=== PATIENT | male | born 1965 | race Caucasian/White ===

== ENCOUNTER 2016-10-28 20:31 | Emergency (ER) | payer MEDICAID ==
[~2016-10-28] VITALS: Ht 177.8 cm; Wt 81.8 kg
[~2016-10-28 20:31] MED LIST: BACTRIM DS 8001 TAB PO; CEPHALEXIN500 M1 PO; LORTAB PO; NO HOME MEDICATIONS; PERCOCET 5/321 UDTAB PO; ULTRAM50 MG PO
[2016-10-28 20:33] VITALS: BP 165/116; TEMP 97.6
[2016-10-28] MEDS ORDERED: NEURONTIN300 MG/CAP PO (20:39)
[2016-10-28 21:24] LABS: BASO # 0.1 (0.0-0.2); BASO % 1.1 % (0.0-2.0); EOS # 0.2 (0.0-0.7); EOS % 3.1 % (0-4.0); GRAN # 3.5 (1.4-6.5); GRAN % 46.9 % (42.2-75.2); HEMATOCRIT 47.2 % (42.0-52.0); HEMOGLOBIN 16.8 g/dl (13.5-18.0); LYMPH # 2.8 (1.2-3.4); LYMPH % 37.4 % (20.0-51.0); MEAN CELL VOLUME 100 fl (80.0-100.0); MEAN CORPUSCULAR HEMOGLOBIN 36 pg (27.0-31.0); MEAN CORPUSCULAR HGB CONC 36 g/dl (33.0-37.0); MONO # 0.9 (0.1-0.6); MONO % 11.4 % (1.7-9.3); PLATELET COUNT 138 K/mm3 (130-400); REDCELL DISTRIBUTION WIDTH-CV 11.8 % (11.5-14.5); WHITE BLOOD COUNT 7.5 K/mm3 (4.8-10.8)
[2016-10-28 21:33] LABS: INR 1.1 (0.8-3.0); PROTHROMBIN TIME 12.5 SECONDS (9.7-12.8)
[2016-10-28 21:39] LABS: ADJUSTED CALCIUM 8.4 mg/dL (8.4-10.2); ALANINE AMINOTRANSFERASE 48 U/L (21-72); ALBUMIN 4.5 gm/dL (3.5-5.0); ALKALINE PHOSPHATASE 53 U/L (50-136); ANION GAP 17 mmol/L (7-16); BILIRUBIN,TOTAL 0.9 mg/dL (0.0-1.0); BLOOD UREA NITROGEN 3 mg/dL (9-20); C-REACTIVE PROTEIN < 0.5 mg/dL (0.0-0.9); CALCIUM 8.8 mg/dL (8.4-10.2); CARBON DIOXIDE 22 mmol/L (22-30); CHLORIDE 103 mmol/L (98-107); CREATININE, serum 0.66 mg/dL (0.66-1.25); GLUCOSE 104 mg/dL (74-106); POTASSIUM 3.6 mmol/L (3.4-5.0); SODIUM 143 mmol/L (137-145); TOTAL PROTEIN 7.9 gm/dL (6.4-8.2)
[2016-10-28 22:18] VITALS: PULSE 102
== END 2016-10-28 22:18 | disposition home or self-care (01) ==
LOC: COL.ER 20:31
PROVIDERS: Emergency Medicine
DX: Z89.611 Acquired absence of right leg above knee (principal); M79.662 Pain in left lower leg; M79.672 Pain in left foot; F10.120 Alcohol abuse with intoxication, uncomplicated; Y90.8 Blood alcohol level of 240 mg/100 ml or more

== ENCOUNTER → 2020-09-15 | Outpatient (REF) ==
[~2020-09-15] MED LIST changes: +ABILIFY5 MG PO; +ALEVE 220MG220 MG PO; +FOLIC ACID 11 MG/TA1 PO; +LEXAPRO 10MG10 MG PO; +LEXAPRO20 MG PO; +MAG-OX 400400 MG/TAB PO; +MELATONIN5 M1 PO; +MEN'S ONE DAIL1 EACH PO; +MILK THISTLE150 MG; +MIRAPEX 1MG PO; +MOBIC15 MG PO; +NEURONTIN300 MG/CAP PO; +NICODERM C21 MG/PATC TD; +PRILOSEC10 MG PO; +PRINIVIL5 MG PO; +PROTONIX 40MG T40 MG PO; +RT ADVAIR HFA 2312 G IH; +RT SPIRIVA18 MCG PO; +THIAMINE 1100 MG/TAB PO; +TRENTAL 400MG400 MG PO; +VENTOLIN0.09 MG; +VENTOLIN0.09 MG IH; +VITAMINC500CH PO
== END ==
LOC: ZLAB.WCH 09:32
DX: Z01.89 Encounter for other specified special examinations (principal)

== ENCOUNTER 2021-01-24 20:29 | Inpatient (IN) | payer MEDICARE, MEDICAID ==
[~2021-01-24] VITALS: Ht 177.8 cm; Wt 102.8 kg
[~2021-01-24 20:29] MED LIST changes: -ABILIFY5 MG PO; -ALEVE 220MG220 MG PO; -FOLIC ACID 11 MG/TA1 PO; -LEXAPRO 10MG10 MG PO; -LEXAPRO20 MG PO; -MAG-OX 400400 MG/TAB PO; -MELATONIN5 M1 PO; -MEN'S ONE DAIL1 EACH PO; -MILK THISTLE150 MG; -MIRAPEX 1MG PO; -MOBIC15 MG PO; -NICODERM C21 MG/PATC TD; -PRILOSEC10 MG PO; -PRINIVIL5 MG PO; -PROTONIX 40MG T40 MG PO; -RT ADVAIR HFA 2312 G IH; -RT SPIRIVA18 MCG PO; -THIAMINE 1100 MG/TAB PO; -TRENTAL 400MG400 MG PO; -VENTOLIN0.09 MG; -VENTOLIN0.09 MG IH; -VITAMINC500CH PO
[2021-01-24 21:12] LABS: BASO # 0.1 (0.0-0.2); BASO % 0.8 % (0.0-2.0); EOS # 0.1 (0.0-0.7); EOS % 0.7 % (0-4.0); GRAN # 4.9 (1.4-6.5); GRAN % 57.5 % (42.2-75.2); HEMATOCRIT 39.5 % (42.0-52.0); LYMPH # 2.6 (1.2-3.4); LYMPH % 30.5 % (20.0-51.0); MEAN CELL VOLUME 90 fl (80.0-100.0); MEAN CORPUSCULAR HEMOGLOBIN 32 pg (27.0-31.0); MEAN CORPUSCULAR HGB CONC 35 g/dl (33.0-37.0); MEAN PLATELET VOLUME 9.9 fl (7.4-10.4); MONO # 0.9 (0.1-0.6); MONO % 10.3 % (1.7-9.3); PLATELET COUNT 125 K/mm3 (130-400); RED BLOOD COUNT 4.41 M/mm3 (4.20-5.60); REDCELL DISTRIBUTION WIDTH-CV 14.4 % (11.5-14.5)
[2021-01-24 21:16] LABS: INR 1.6 (0.8-3.0); PROTHROMBIN TIME 17.5 SECONDS (9.7-12.8)
[2021-01-24 21:19] LABS: ALBUMIN 4.1 gm/dL (3.5-5.0); CALCIUM 8.2 mg/dL (8.4-10.2); CREATININE, serum 0.77 (0.66-1.25); TOTAL PROTEIN 7.5 gm/dL (6.4-8.2)
[2021-01-24 23:25] LABS: MAGNESIUM 1.6 mg/dL (1.6-2.3)
[2021-01-25] VITALS (562 sets, daily range): BP systolic 113–172; BP diastolic 86–96; PULSE 111–139; TEMP 98.1–99.9; O2SAT 57–100
[2021-01-25 03:18] LABS: HEMATOCRIT 34.7 % (42.0-52.0)
[2021-01-25 04:14] LABS: COLLECTION METHOD CLEAN CATCH
[2021-01-25 04:19] LABS: PH 6 (5-8); SQUAMOUS EPITHELIAL None Seen /hpf; URINE APPEARANCE Clear; URINE BACTERIA None Seen /hpf; URINE BILIRUBIN Negative (NEGATIVE); URINE BLOOD Negative (NEGATIVE); URINE COLOR Yellow; URINE GLUCOSE Negative (NEGATIVE); URINE KETONE Trace (NEGATIVE); URINE LEUKOCYTE ESTERASE Negative (NEGATIVE); URINE NITRATE Negative (NEGATIVE); URINE PROTEIN(semi-quant) Negative (NEGATIVE); URINE RBC None Seen /hpf; URINE UROBILINOGEN Negative (NEGATIVE)
[2021-01-25 04:26] LABS: TRICYCLIC ANTIDEPRESS URINE NEGATIVE
[2021-01-25] MEDS ORDERED: ABILIFY5 MG PO ×3 (05:10→05:12)
[2021-01-25] MEDS ORDERED: LEXAPRO20 MG PO ×3 (05:13→06:29)
[2021-01-25] MEDS ORDERED: NEURONTIN300 MG/CAP PO (05:14)
[2021-01-25] MEDS ORDERED: PRINIVIL5 MG PO (05:15)
[2021-01-25 05:16] LABS: BASO # 0.1 (0.0-0.2); BASO % 0.9 % (0.0-2.0); EOS % 0.2 % (0-4.0); GRAN # 4.2 (1.4-6.5); GRAN % 63.2 % (42.2-75.2); HEMOGLOBIN 11.4 g/dl (13.5-18.0); LYMPH # 1.7 (1.2-3.4); LYMPH % 25.9 % (20.0-51.0); MEAN CELL VOLUME 90 fl (80.0-100.0); MEAN CORPUSCULAR HEMOGLOBIN 32 pg (27.0-31.0); MEAN CORPUSCULAR HGB CONC 35 g/dl (33.0-37.0); MEAN PLATELET VOLUME 9.9 fl (7.4-10.4); MONO # 0.6 (0.1-0.6); MONO % 9.2 % (1.7-9.3); PLATELET COUNT 93 K/mm3 (130-400); REDCELL DISTRIBUTION WIDTH-CV 14.6 % (11.5-14.5)
[2021-01-25] MEDS ORDERED: MELATONIN5 M1 PO (05:16)
[2021-01-25 05:17] LABS: HEMATOCRIT 32.5 % (42.0-52.0)
[2021-01-25] MEDS ORDERED: MOBIC15 MG PO (05:17)
[2021-01-25] MEDS ORDERED: MILK THISTLE150 MG (05:17)
[2021-01-25] MEDS ORDERED: MEN'S ONE DAIL1 EACH PO (05:18)
[2021-01-25] MEDS ORDERED: ALEVE 220MG220 MG PO (05:19)
[2021-01-25] MEDS ORDERED: TRENTAL 400MG400 MG PO (05:20)
[2021-01-25] MEDS ORDERED: PRILOSEC10 MG PO (05:20)
[2021-01-25] MEDS ORDERED: MIRAPEX 1MG PO ×2 (05:21→06:32)
[2021-01-25] MEDS ORDERED: RT SPIRIVA18 MCG PO (05:22)
[2021-01-25] MEDS ORDERED: VENTOLIN0.09 MG (05:22)
[2021-01-25] MEDS ORDERED: VITAMINC500CH PO (05:23)
[2021-01-25 05:24] LABS: CALCIUM 7.1 mg/dL (8.4-10.2); CREATININE, serum 0.7 (0.66-1.25); POTASSIUM 5.1 mmol/L (3.4-5.0)
[2021-01-25] MEDS ORDERED: LEXAPRO 10MG10 MG PO (06:30)
[2021-01-25] MEDS ORDERED: RT ADVAIR HFA 2312 G IH (06:31)
[2021-01-25] MEDS ORDERED: VENTOLIN0.09 MG IH (06:32)
--- NOTE | 2021-01-25 07:26 | NUR ---
ATTEMPTED TIMES 3 TO OBTAIN NEW IV SITE TO BE ABLE TO GIVE FFP'S UNABLE AT THIS TIME SHERITA SCHNEIDER APRN AWARE
--- NOTE | 2021-01-25 09:37 | NUR ---
Initial visit; Patient nodded when Health And Safety Director introduced herself. Patient began coughing while Health And Safety Director was letting him know of her availability to pray or listen. Health And Safety Director will follow up.
--- NOTE | 2021-01-25 15:17 | NUR ---
quality worker met with patient to discuss discharge planning. Patient states he resides with his and will return there upon discharge. Patient states his primary care provider is Dr Susie Edgar. Patient states he has been independent with his activities of daily living at home. Patient states he doesn't have any advance directives and is not interested in making documents at this time. Worker left message for patient's spouse, Elisabeth [phone].
[2021-01-25 17:21] LABS: HEMOGLOBIN 9.4 g/dl (13.5-18.0)
[2021-01-25 17:22] LABS: HEMATOCRIT 27.9 % (42.0-52.0)
--- NOTE | 2021-01-25 19:19 | NUR ---
Report given to ORIN Fernandez
[2021-01-25 22:53] LABS: HEMOGLOBIN 10.7 g/dl (13.5-18.0)
[2021-01-26] VITALS (606 sets, daily range): BP systolic 126–157; BP diastolic 79–111; PULSE 95–118; TEMP 97.3–98.6; O2SAT 38–100
[2021-01-26 06:02] LABS: MEAN CORPUSCULAR HGB CONC 33 g/dl (33.0-37.0); MEAN PLATELET VOLUME 9.8 fl (7.4-10.4); PLATELET COUNT 71 K/mm3 (130-400); RED BLOOD COUNT 3.08 M/mm3 (4.20-5.60); REDCELL DISTRIBUTION WIDTH-CV 15.2 % (11.5-14.5)
[2021-01-26 06:04] LABS: HEMATOCRIT 29.1 % (42.0-52.0); HEMOGLOBIN 9.6 g/dl (13.5-18.0); MEAN CELL VOLUME 95 fl (80.0-100.0); MEAN CORPUSCULAR HEMOGLOBIN 31 pg (27.0-31.0)
[2021-01-26 06:14] LABS: ALBUMIN 3.5 gm/dL (3.5-5.0); BILIRUBIN,TOTAL 1.1 mg/dL (0.0-1.0); CALCIUM 7.8 mg/dL (8.4-10.2); CREATININE, serum 0.78 (0.66-1.25); POTASSIUM 3.6 mmol/L (3.4-5.0); TOTAL PROTEIN 6.3 gm/dL (6.4-8.2)
[2021-01-26 06:18] LABS: INR 1.5 (0.8-3.0)
[2021-01-26 16:25] LABS: HEMATOCRIT 27.1 % (42.0-52.0)
[2021-01-26] MEDS ORDERED: RT ADVAIR HFA 2312 G IH (17:21)
--- NOTE | 2021-01-26 20:00 | NUR ---
PATIENT NOTED TO BE INCONTINENT OF LARGE AMOUNT OF URINE, CONDOM CATHETER DISLODGED, PATIENT DECLINED REAPPLICATION
[2021-01-27] VITALS (627 sets, daily range): BP systolic 109–133; BP diastolic 69–83; PULSE 66–132; TEMP 97.8–99.3; O2SAT 63–100
[2021-01-27 06:14] LABS: MEAN CELL VOLUME 93 fl (80.0-100.0); MEAN CORPUSCULAR HGB CONC 34 g/dl (33.0-37.0); MEAN PLATELET VOLUME 10.6 fl (7.4-10.4); PLATELET COUNT 52 K/mm3 (130-400); REDCELL DISTRIBUTION WIDTH-CV 15.2 % (11.5-14.5)
[2021-01-27 06:20] LABS: HEMATOCRIT 25.2 % (42.0-52.0); HEMOGLOBIN 8.6 g/dl (13.5-18.0); MEAN CORPUSCULAR HEMOGLOBIN 32 pg (27.0-31.0)
[2021-01-27 06:28] LABS: INR 1.6 (0.8-3.0); PROTHROMBIN TIME 17.9 SECONDS (9.7-12.8)
[2021-01-27 06:44] LABS: ALBUMIN 3.1 gm/dL (3.5-5.0); BILIRUBIN,TOTAL 1.3 mg/dL (0.0-1.0); CREATININE, serum 0.68 (0.66-1.25); POTASSIUM 3.3 mmol/L (3.4-5.0); TOTAL PROTEIN 5.9 gm/dL (6.4-8.2)
--- NOTE | 2021-01-27 17:00 | NUR ---
Pt has not voided since 1100 - bladder feels distended - pt unable to void in urinal.
[2021-01-28] VITALS (716 sets, daily range): BP systolic 118–151; BP diastolic 68–109; PULSE 56–88; TEMP 97.6–99.9; O2SAT 64–100
[2021-01-28 05:08] LABS: BASO # 0.1 (0.0-0.2); BASO % 1.1 % (0.0-2.0); EOS # 0.1 (0.0-0.7); EOS % 2.4 % (0-4.0); GRAN # 2.9 (1.4-6.5); GRAN % 63.9 % (42.2-75.2); LYMPH % 21.3 % (20.0-51.0); MEAN CELL VOLUME 94 fl (80.0-100.0); MEAN CORPUSCULAR HGB CONC 34 g/dl (33.0-37.0); MEAN PLATELET VOLUME 9.9 fl (7.4-10.4); MONO # 0.5 (0.1-0.6); MONO % 11.1 % (1.7-9.3); PLATELET COUNT 62 K/mm3 (130-400); RED BLOOD COUNT 2.88 M/mm3 (4.20-5.60); REDCELL DISTRIBUTION WIDTH-CV 14.7 % (11.5-14.5)
[2021-01-28 05:09] LABS: HEMOGLOBIN 9.2 g/dl (13.5-18.0); MEAN CORPUSCULAR HEMOGLOBIN 32 pg (27.0-31.0)
[2021-01-28 05:10] LABS: HEMATOCRIT 27.2 % (42.0-52.0)
[2021-01-28 05:23] LABS: ALBUMIN 3.3 gm/dL (3.5-5.0); BILIRUBIN,TOTAL 1.4 mg/dL (0.0-1.0); CALCIUM 8.4 mg/dL (8.4-10.2); CREATININE, serum 0.71 (0.66-1.25); POTASSIUM 3.9 mmol/L (3.4-5.0); TOTAL PROTEIN 6.3 gm/dL (6.4-8.2)
--- NOTE | 2021-01-28 09:43 | NUR ---
Pt sleeping or when awake RASS=0 At times pt does wake up confused and yells out for someone to bring him an alcoholic beverage or cigarette. Frequent re-orientation provided with limited recall. Pt updated via telephone
[2021-01-29] VITALS (466 sets, daily range): BP systolic 114–157; BP diastolic 75–104; PULSE 60–108; TEMP 97.9–99.8; O2SAT 76–100
[2021-01-29 05:18] LABS: MEAN CORPUSCULAR HGB CONC 33 g/dl (33.0-37.0); PLATELET COUNT 73 K/mm3 (130-400); RED BLOOD COUNT 3.05 M/mm3 (4.20-5.60); REDCELL DISTRIBUTION WIDTH-CV 15.3 % (11.5-14.5)
[2021-01-29 05:22] LABS: HEMATOCRIT 30.5 % (42.0-52.0); HEMOGLOBIN 9.9 g/dl (13.5-18.0); MEAN CELL VOLUME 100 fl (80.0-100.0); MEAN CORPUSCULAR HEMOGLOBIN 32 pg (27.0-31.0)
[2021-01-29 05:29] LABS: ALBUMIN 3.5 gm/dL (3.5-5.0); BILIRUBIN,TOTAL 1.5 mg/dL (0.0-1.0); CALCIUM 8.3 mg/dL (8.4-10.2); CREATININE, serum 0.64 (0.66-1.25); POTASSIUM 4.7 mmol/L (3.4-5.0); TOTAL PROTEIN 6.9 gm/dL (6.4-8.2)
--- NOTE | 2021-01-29 12:43 | NUR ---
Commodity Management Specialist attended clinical rounds with the team and patient to transfer to the medical floor.
--- NOTE | 2021-01-29 12:57 | NUR ---
Follow-up visit; Patient states that he hopes to go home. He said he knows the alcohol caused his health problems and states he won't drink at home. Chief Lending Officer offered God's blessings and hope that he can go home to be with his and dogs like he hopes.
--- NOTE | 2021-01-29 18:00 | NUR ---
Pt alert, oriented, and cooperative today. Pt no longer wishing to "escape this assisted" or request alcohol or cigarettes.
[2021-01-30] VITALS (344 sets, daily range): BP systolic 128–154; BP diastolic 71–99; PULSE 96–134; TEMP 98–98.8; O2SAT 53–100
[2021-01-30 05:26] LABS: BASO # 0.1 (0.0-0.2); BASO % 0.7 % (0.0-2.0); EOS # 0.1 (0.0-0.7); EOS % 1.4 % (0-4.0); GRAN % 57.3 % (42.2-75.2); LYMPH # 1.6 (1.2-3.4); LYMPH % 22.8 % (20.0-51.0); MEAN CORPUSCULAR HEMOGLOBIN 32 pg (27.0-31.0); MEAN CORPUSCULAR HGB CONC 34 g/dl (33.0-37.0); MEAN PLATELET VOLUME 10.4 fl (7.4-10.4); MONO # 1.2 (0.1-0.6); MONO % 17.4 % (1.7-9.3); PLATELET COUNT 118 K/mm3 (130-400); RED BLOOD COUNT 3.16 M/mm3 (4.20-5.60); REDCELL DISTRIBUTION WIDTH-CV 15.3 % (11.5-14.5)
[2021-01-30 05:29] LABS: HEMATOCRIT 29.4 % (42.0-52.0); MEAN CELL VOLUME 93 fl (80.0-100.0)
[2021-01-30 05:36] LABS: CALCIUM 8.4 mg/dL (8.4-10.2); CREATININE, serum 0.63 (0.66-1.25); MAGNESIUM 1.7 mg/dL (1.6-2.3); POTASSIUM 3.2 mmol/L (3.4-5.0)
--- NOTE | 2021-01-30 09:15 | NUR ---
Assisted up to commode with 2 assist. Patient gait slow and hesitant but tolerated well. Patient has been cooperative with nursing staff. Has utilized call light appropriately and has not attempted to get up from chair without assistance. Call light left within reach.
--- NOTE | 2021-01-30 13:18 | NUR ---
Torpedo Specialist met with patient to review discharge plan. Patient states he plans to return home upon discharge. SW contacted patient's , Elisabeth and left a message.
--- NOTE | 2021-01-30 14:00 | NUR ---
Patient has been cooperative throughout the shift. CIWA scores 3-7. Mostly scores for tremor of hands and elevated BP and pulse. Will continue to monitor.
--- NOTE | 2021-01-30 18:00 | NUR ---
Ate 75% of evening meal. Stated "it was good". Patient resting in bed and watching TV. No concerns at this time, will continue to monitor.
--- NOTE | 2021-01-30 20:43 | NUR ---
Called report to medical floor nurse.
--- NOTE | 2021-01-30 22:15 | NUR ---
PT RECEIVED ON FLOOR. INITIAL ASSESSMENT COMPLETED. PT ORIENTED TO ROOM. PT NIGHT MEDICATIONS ADMINISTERED PER ORDERS.
--- NOTE | 2021-01-30 22:18 | NUR ---
PT ALERT AND ORIENTED. SLIGHT DELAY IN VERBAL RESPONSES. PT ORIENTED TO ROOM, GIVEN SNACK AND WATER. PT UPDATED ON CURRENT DIET AND VITAL SIGNS OBTAINED. PT EXPRESSES SOA, SPO2 GREATER THAN 95%. PT RESPIRATIONS TACHYPNIC, SHALLOW. NO OXYGEN PLACED AT THIS TIME, HOB ELEVATED. PT HAS SCALING AND FLAKING SKIN ON LEFT LOWER LEG, REDDENED. 2+ DORSALIS PEDIS AND POSTERIOR TIBIAL PULSES. 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 PT DENIES PAIN AT THIS TIME. PT CALL LIGHT WITHIN REACH AND INSTRUCTED HOW TO USE PHONE.
[2021-01-31] VITALS (14 sets, daily range): BP systolic 114–154; BP diastolic 65–93; PULSE 92–122; TEMP 97.4–99.6
--- NOTE | 2021-01-31 00:56 | NUR ---
PT AUDIBLY SNORING, WITH HISTORY OF BRICE, SPO2 RECHECKED, 95% ON ROOM AIR.
--- NOTE | 2021-01-31 06:36 | NUR ---
PT HAD BOUT OF EMESIS, NO BLOOD NOTED. YELLOW, LIQUID EMESIS. PT STATES HE HAD TROUBLE WITH COUGHING UP SPUTUM AND SWALLOWING IT WHICH CAUSED EMESIS. OFFERED ZOFRAN PRN, DENIED STATING NO LONGER NAUSEOUS.
--- NOTE | 2021-01-31 07:39 | NUR ---
PT CONTINUING ON PLAN OF CARE. PT CIWA SCORING 3-5 THROUGHOUT NIGHT, PT SLEEPING SOUNDLY, NO PRN MEDICATION GIVEN SINCE TRANSFER. PT HAD ONE BOUT OF EMESIS AROUND 0600, NO BLOOD NOTED IN EMESIS. LIQUID AND YELLOW. PT DENIED NAUSEA AFTER AND DENIED NAUSEA MEDICATIONS. PT CALL LIGHT WITHIN REACH. PT DENIED PAIN OVERNIGHT. PT FREE FROM INJURY THIS SHIFT.
[2021-01-31 08:12] LABS: BASO # 0.1 (0.0-0.2); BASO % 0.9 % (0.0-2.0); EOS # 0.2 (0.0-0.7); EOS % 2.1 % (0-4.0); GRAN # 4.4 (1.4-6.5); GRAN % 63.3 % (42.2-75.2); LYMPH % 14.4 % (20.0-51.0); MEAN CELL VOLUME 96 fl (80.0-100.0); MEAN CORPUSCULAR HGB CONC 33 g/dl (33.0-37.0); MEAN PLATELET VOLUME 10.8 fl (7.4-10.4); MONO # 1.3 (0.1-0.6); MONO % 18.6 % (1.7-9.3); PLATELET COUNT 140 K/mm3 (130-400); RED BLOOD COUNT 2.98 M/mm3 (4.20-5.60); REDCELL DISTRIBUTION WIDTH-CV 15.8 % (11.5-14.5)
[2021-01-31 08:16] LABS: HEMATOCRIT 28.6 % (42.0-52.0); HEMOGLOBIN 9.5 g/dl (13.5-18.0); MEAN CORPUSCULAR HEMOGLOBIN 32 pg (27.0-31.0)
[2021-01-31 08:21] LABS: ALBUMIN 3.5 gm/dL (3.5-5.0); BILIRUBIN,TOTAL 1.2 mg/dL (0.0-1.0); CALCIUM 8.5 mg/dL (8.4-10.2); CREATININE, serum 0.71 (0.66-1.25); MAGNESIUM 1.7 mg/dL (1.6-2.3); POTASSIUM 3.7 mmol/L (3.4-5.0); TOTAL PROTEIN 6.8 gm/dL (6.4-8.2)
[2021-01-31 08:22] LABS: INR 1.4 (0.8-3.0)
--- NOTE | 2021-01-31 08:45 | NUR ---
Pt resting in recliner after working w/OT this morning. A&Ox4. Heart rate remains tachy w/regular rhythm. Wheezes heard to auscultation over all lung felix. CIWA scores 3-5 overnight and this morning. Pt denies needs. Continuing to monitor.
--- NOTE | 2021-01-31 21:30 | NUR ---
Patient is resting in bed, alert and oriented x 4, VSS, no nausea, vomiting. INdicates some pain in the abdomen but refused pain meds. CIWA 2, Tele in place, SNR, Indicates he is tolerating food. Assessment completed, no further needs at this time, call light within reach.
--- NOTE | 2021-02-01 02:49 | NUR ---
Patient assisted to bathroom. No problem with ambulation. Patient has some productive cough.
[2021-02-01 02:59] VITALS: BP 142/83; PULSE 112; TEMP 98.9
[2021-02-01 03:57] VITALS: BP 125/65; PULSE 105; TEMP 98.6
[2021-02-01 06:08] VITALS: BP 130/66; PULSE 81; TEMP 98.9
--- NOTE | 2021-02-01 06:58 | NUR ---
Patient has had a calm night. Score in CIWA of 2 or 3. He asked just for a cup of juice at night. He is able to walk to the restroom and to the chair without problems. No further needs at this time. Shift report will be given.
[2021-02-01 07:56] LABS: MEAN CELL VOLUME 97 fl (80.0-100.0); MEAN CORPUSCULAR HGB CONC 33 g/dl (33.0-37.0); MEAN PLATELET VOLUME 10.6 fl (7.4-10.4); PLATELET COUNT 148 K/mm3 (130-400); RED BLOOD COUNT 2.95 M/mm3 (4.20-5.60); REDCELL DISTRIBUTION WIDTH-CV 15.2 % (11.5-14.5)
[2021-02-01 07:58] LABS: CALCIUM 8.7 mg/dL (8.4-10.2); CREATININE, serum 0.7 (0.66-1.25); HEMATOCRIT 28.6 % (42.0-52.0); HEMOGLOBIN 9.5 g/dl (13.5-18.0); MEAN CORPUSCULAR HEMOGLOBIN 32 pg (27.0-31.0); POTASSIUM 3.8 mmol/L (3.4-5.0)
--- NOTE | 2021-02-01 08:00 | NUR ---
Agree with student assessment of the patient. Patient is ready to go home today. Call light within reach
[2021-02-01] MEDS ORDERED: NICODERM C21 MG/PATC TD (08:50)
[2021-02-01] MEDS ORDERED: PROTONIX 40MG T40 MG PO (08:51)
[2021-02-01] MEDS ORDERED: THIAMINE 1100 MG/TAB PO (08:51)
[2021-02-01] MEDS ORDERED: MAG-OX 400400 MG/TAB PO (08:51)
[2021-02-01] MEDS ORDERED: FOLIC ACID 11 MG/TA1 PO (08:51)
--- NOTE | 2021-02-01 10:00 | NUR ---
Discharge paperwork reviewed with the patient and . Patient verbalized an understanding to follow doctors orders. IV removed by the student nurse and the student nurse transferred the patient by wheelchair to the patients entrance. No further needs expressed. Personal belongings with the patient
--- NOTE | 2021-02-01 10:30 | NUR ---
Primary nurse was assisted with [phone] patient care by [facility] student Shayna Ruiz and [facility] [employer] instructor Анна Meyers MSN, RN
[2021-02-01 10:31] VITALS: BP 150/84; PULSE 99; TEMP 98
[2021-02-01 11:16] VITALS: BP 150/84; PULSE 99; TEMP 98
--- NOTE | 2021-02-01 12:38 | NUR ---
Follow-up visit; Patient thanked Adaptive Physical Education Teacher for looking in on him and wishing him well and God's blessings including taking care of himself.
== END 2021-02-01 10:00 | disposition home or self-care (01) | DRG 433 ==
LOC: COL.ER 20:29 → MEDICAL 22:36 → ICU 22:36 → EU 01-28 21:46 → ICU 01-28 21:46 → MEDICAL 01-30 21:10
PROVIDERS: Internal Medicine; Internal Medicine Gastroenterology; Nurse Practitioner Family; Physician Assistant
PROC: 0DJ08ZZ Inspection of Upper Intestinal Tract, Via Natural or Artificial Opening Endoscopic (ICD-10-PCS; principal; 2021-01-25 10:30)
DX: K70.30 Alcoholic cirrhosis of liver without ascites (principal); I85.10 Secondary esophageal varices without bleeding; D62 Acute posthemorrhagic anemia; E87.1 Hypo-osmolality and hyponatremia; D69.6 Thrombocytopenia, unspecified; F32.9 Major depressive disorder, single episode, unspecified; J44.9 Chronic obstructive pulmonary disease, unspecified; F17.210 Nicotine dependence, cigarettes, uncomplicated; G25.81 Restless legs syndrome; I73.9 Peripheral vascular disease, unspecified; F10.129 Alcohol abuse with intoxication, unspecified; E87.8 Other disorders of electrolyte and fluid balance, not elsewhere classified; I10 Essential (primary) hypertension; K21.00 Gastro-esophageal reflux disease with esophagitis, without bleeding; K29.30 Chronic superficial gastritis without bleeding; Z89.511 Acquired absence of right leg below knee
CPT/HCPCS: 99223-AI; 99232-AI; 99233-AI; 99239; A9284; C9113; J0696; J2060; J2354; J2405; J2550; J2704; J3411; J3475; J3480; J7030; J7040; Q9967

== ENCOUNTER 2021-08-26 18:13 | Inpatient (IN) | payer MEDICARE, MEDICAID ==
[~2021-08-26] VITALS: Ht 177.8 cm; Wt 96.5 kg
[~2021-08-26 18:13] MED LIST changes: +ABILIFY5 MG PO; +ALEVE 220MG220 MG PO; +FOLIC ACID 11 MG/TA1 PO; +LEXAPRO 10MG10 MG PO; +LEXAPRO20 MG PO; +MAG-OX 400400 MG/TAB PO; +MELATONIN5 M1 PO; +MEN'S ONE DAIL1 EACH PO; +MILK THISTLE150 MG; +MIRAPEX 1MG PO; +MOBIC15 MG PO; +NICODERM C21 MG/PATC TD; +PRILOSEC10 MG PO; +PRINIVIL5 MG PO; +PROTONIX 40MG T40 MG PO; +RT ADVAIR HFA 2312 G IH; +RT SPIRIVA18 MCG PO; +THIAMINE 1100 MG/TAB PO; +VENTOLIN0.09 MG; +VENTOLIN0.09 MG IH; +VITAMINC500CH PO
--- NOTE | 2021-08-26 19:55 | NUR ---
PATIENT ARRIVED TO ROOM 354 AT THIS TIME FROM EMS.
[2021-08-26 20:31] VITALS: BP 151/82; PULSE 89; TEMP 99.1
[2021-08-26 21:57] LABS: ALBUMIN 2.7 gm/dL (3.5-5.0); BILIRUBIN,TOTAL 1.1 mg/dL (0.2-1.2); CALCIUM 7.7 mg/dL (8.4-10.2); CREATININE, serum 0.78 mg/dL (0.72-1.25); MAGNESIUM 1.9 mg/dL (1.6-2.6); PHOSPHOROUS 2.4 mg/dL (2.3-4.7); POTASSIUM 4.7 mmol/L (3.5-4.5); TOTAL PROTEIN 6.6 gm/dL (6.2-8.1)
[2021-08-26 22:24] LABS: COLLECTION METHOD CLEAN CATCH
[2021-08-26 22:29] LABS: PH 6 (5-8); SQUAMOUS EPITHELIAL None Seen /hpf (0-10); URINE APPEARANCE Clear (CLEAR/HAZY); URINE BACTERIA None Seen /hpf (NONE SEEN); URINE BILIRUBIN Negative (NEGATIVE); URINE BLOOD Negative (NEGATIVE); URINE COLOR Yellow (YELLOW); URINE GLUCOSE Negative (NEGATIVE); URINE KETONE Trace (NEGATIVE); URINE LEUKOCYTE ESTERASE Negative (NEGATIVE); URINE NITRATE Negative (NEGATIVE); URINE PROTEIN(semi-quant) Negative (NEGATIVE); URINE RBC 0-2 /hpf (0-2); URINE UROBILINOGEN Negative (NEGATIVE); URINE WBC 0-2 /hpf (0-2)
[2021-08-26 22:40] LABS: INR 1.8 (0.8-3.0); PROTHROMBIN TIME 20.6 SECONDS (9.7-12.8)
[2021-08-26 22:43] LABS: PARTIAL THROMBOPLASTIN TIME 33.1 SECONDS (26.0-37.0)
[2021-08-26 22:47] LABS: TRICYCLIC ANTIDEPRESS URINE NEGATIVE
[2021-08-26 23:39] VITALS: BP 153/84; PULSE 95; TEMP 98.8
[2021-08-26] MEDS ORDERED: SYNTHROID0.075 MG/T PO (23:44)
[2021-08-27] VITALS (20 sets, daily range): BP systolic 129–162; BP diastolic 64–88; PULSE 82–104; TEMP 97.4–98.7
[2021-08-27 01:15] LABS: BASO % 0.1 % (0.0-2.0); GRAN # 6.9 K/mm3 (1.4-6.5); GRAN % 82.6 % (42.2-75.2); LYMPH # 0.7 K/mm3 (1.2-3.4); LYMPH % 8.6 % (20.0-51.0); MEAN CELL VOLUME 71 fl (80.0-100.0); MEAN CORPUSCULAR HGB CONC 33 g/dl (33.0-37.0); MEAN PLATELET VOLUME 10.5 fl (7.4-10.4); MONO # 0.7 K/mm3 (0.1-0.6); MONO % 8.1 % (1.7-9.3); PLATELET COUNT 111 K/mm3 (130-400); REDCELL DISTRIBUTION WIDTH-CV 20.4 % (11.5-14.5)
[2021-08-27 01:21] LABS: HEMATOCRIT 22.8 % (42.0-52.0); HEMOGLOBIN 7.5 g/dl (13.5-18.0); MEAN CORPUSCULAR HEMOGLOBIN 23 pg (27-31)
[2021-08-27 03:20] LABS: OSMOLALITY-URINE random 385 Osm/kg (50-1200)
--- NOTE | 2021-08-27 07:29 | NUR ---
PATIENT IN BED RESTING, FFP RUNNING AT 125ML/HR WITH NS FLUSH SET AT 125ML. OCTREOTRIDSE RUNNING AT 50.1 ML/HR. PATIENT USED URINAL WITH NO ISSUES. GI PA AT BEDSIDE, NO PLANS FOR TODAY EXCEPT MONITORING SITUATION.
[2021-08-27 10:15] LABS: HEMOGLOBIN 6.7 g/dl (13.5-18.0)
--- NOTE | 2021-08-27 13:07 | NUR ---
PATIENT SLEEPING IN BED, WITH COARSE LUNG SOUNDS. PRODUCTIVE WET COUGH, FREQUENT UNCONTROLLED SHAKING IN ALL 4 EXTREMITIES. RBKA, CLEAN AND INTACT. NO ULCERS PRESENT. PATIENT PLESANT WHEN AWAKE AND A&OX4. NO C/O PAIN. FFP RUNNING AT 125ML/HR. NO REACTIONS NOTED. CIWA SCORE 5. WILL CONTINUE TO MONITOR.
--- NOTE | 2021-08-27 13:50 | NUR ---
Patient has been asleep from the valium and is currently getting a picc line, therefore, Social Work student called the patient's to complete the intake. Patient lives in [place] with his , Xochilt(ph#[phone]). Patient sees Dr. Edgar for primary care, and he receives his medications through [facility]. Patient utilizes a cane at times, and is independent with his ADL's. Patient has not filled out a DPOA-HC prior to his hospital stay. Patient's states that they do not have any kids. Discharge plan: Home pending PT/OT recs
--- NOTE | 2021-08-27 16:06 | NUR ---
PATIENT VITALS STABLE, BLOOD ADMIN INITIATED. EDUCATION PROVIDED REGUARDING BLOOD TRANSFUSION REACTIONS. REMAINED AT PATIENT BEDSIDE FOR FIRST 15MIN.
--- NOTE | 2021-08-27 18:58 | NUR ---
PATIENT RESTING IN BED, REPOSITIONED, MEAL PROVIDED. BLOOD PRODUCT COMPLETE AND DISPOSED OF. PATIENT REMINDED OF NPO AFTER MIDNIGHT. PERSISTANT COUGH. BEDSIDE REPORT GIVEN TO ORIN HOWARD.
[2021-08-27 20:01] LABS: HEMATOCRIT 25.9 % (42.0-52.0); HEMOGLOBIN 8.2 g/dl (13.5-18.0)
[2021-08-28] VITALS (18 sets, daily range): BP systolic 135–167; BP diastolic 72–93; PULSE 76–88; TEMP 97.4–99
[2021-08-28 06:10] LABS: MEAN CELL VOLUME 74 fl (80.0-100.0); MEAN CORPUSCULAR HGB CONC 32 g/dl (33.0-37.0); MEAN PLATELET VOLUME 10.4 fl (7.4-10.4); PLATELET COUNT 122 K/mm3 (130-400); RED BLOOD COUNT 3.44 M/mm3 (4.20-5.60); REDCELL DISTRIBUTION WIDTH-CV 20.5 % (11.5-14.5)
[2021-08-28 06:16] LABS: HEMATOCRIT 25.6 % (42.0-52.0); HEMOGLOBIN 8.2 g/dl (13.5-18.0); MEAN CORPUSCULAR HEMOGLOBIN 24 pg (27-31)
[2021-08-28 06:32] LABS: CALCIUM 7.4 mg/dL (8.4-10.2); CREATININE, serum 0.76 mg/dL (0.72-1.25)
[2021-08-28 07:16] LABS: BAND 2 % (0-10); LYMPHOCYTE 11 % (20.0-51.0); NEUTROPHILS 81 % (42.0-75.2)
[2021-08-28 07:17] LABS: HYPOCHROMIA 2+; POIKILOCYTOSIS 1+; SCHISTOCYTES 1+; SPHEROCYTE 1+; TARGET CELLS 1+
[2021-08-28 07:18] LABS: TEAR DROP CELLS 1+
[2021-08-28 12:55] LABS: ARTERIAL BLD GAS O2 SATURATION 90.8 % (92-100); ARTERIAL BLD GAS TCO2 CT 12.6; ARTERIAL BLOOD GAS PO2 68.7 mmHg (80-100); ARTERIAL BLOOD GAS pH 7.41 (7.35-7.45)
[2021-08-28 12:58] LABS: ARTERIAL BLOOD GAS PCO2 19.4 mmHg (35-45)
--- NOTE | 2021-08-28 20:01 | NUR ---
Patient has had a rough day. Q2 vitals completed as ordered. Ativan given per protocol. Patient has been confused and disoriented this shift. Tremors noted. Patient has been tachycapnic, provider made aware, ABG recieved and resulted. Patient currenlty on 0.5 L of O2 via nasal cannula. EGD completed, post op vitals in progress. Patient not able to take PO abx, JESS Reid ordered IV. Patient had 2 episodes of vomitting this shift, 1 dose of zofran given. Patient is currently resting in bed. Fall and seizure percautions in place.
[2021-08-29] VITALS (13 sets, daily range): BP systolic 148–185; BP diastolic 77–98; PULSE 66–92; TEMP 97.7–98.6
[2021-08-29 06:26] LABS: MEAN CELL VOLUME 75 fl (80.0-100.0); MEAN CORPUSCULAR HGB CONC 31 g/dl (33.0-37.0); MEAN PLATELET VOLUME 9.8 fl (7.4-10.4); PLATELET COUNT 140 K/mm3 (130-400); RED BLOOD COUNT 3.56 M/mm3 (4.20-5.60)
[2021-08-29 06:31] LABS: HEMATOCRIT 26.8 % (42.0-52.0); HEMOGLOBIN 8.4 g/dl (13.5-18.0); MEAN CORPUSCULAR HEMOGLOBIN 24 pg (27-31)
[2021-08-29 06:43] LABS: CALCIUM 7.4 mg/dL (8.4-10.2); CREATININE, serum 0.8 mg/dL (0.72-1.25)
[2021-08-29 07:11] LABS: BAND 4 % (0-10); METAMYELOCYTE 1 % (0-0); NEUTROPHILS 71 % (42.0-75.2)
[2021-08-29 07:12] LABS: ANISOCYTOSIS 2+; HYPOCHROMIA 3+; PLATELET ESTIMATE NORMAL (NORMAL)
[2021-08-29 07:13] LABS: LYMPHOCYTE 10 % (20.0-51.0)
--- NOTE | 2021-08-29 22:47 | NUR ---
Pt sleeping upon entry this evening. He is alert and oriented to speech, but falls back asleep very quickly and needs to be awoken again. Pt denies pain. Pt is still scoring in the 4-6 range. PRN ativan has not been administered yet on this shift because pt still remains very sleepy. PRN hydralazine has been administered x1 this evening so far for a BP of 177/87. Will reassess BP and continue to monitor. Pt is afebrile and in normal sinus rythym. Sounds wheezy when breathing, but respirations are in in the 18-20 range. Pt is satting 96%-98% on 2L [place]. Pt's skin is moist, but does not appear to have beats of sweat. Fine tremors are felt when holding the pt's hands. Pt does not appear to be anxious when awake, just sleepy. Pt continues to be incontinent of bladder and bowel. Bed alarm remains on and I educated the pt to not get out of the bed without calling. No skin issues noted other than some scattered scabs on the arms. BKA on the right side noted. 2+ pedal pulse in the left foot. Shift assessment performed. Medications administered and education provided. Will continue to assess pt with CIWA protocol every 2 hours and will administered medications as needed. Continuing to monitor, no new concerns at this time.
[2021-08-30] VITALS (12 sets, daily range): BP systolic 146–171; BP diastolic 73–92; PULSE 67–96; TEMP 97.8–98.6
--- NOTE | 2021-08-30 00:39 | NUR ---
Ativan 1 ml prn administered because pt is continuing to score at a 6, even after prn Hyrdalazine administered. Pt is more alert and awake now, still continues to be oriented. BP was 170/83 after IV Hyrdalazine was administered. Will continue to monitor pt.
--- NOTE | 2021-08-30 02:10 | NUR ---
Pt's BP is still running elevated at 171/85 after hydralazine prn x1 and 1 ml ativan prn x1. Notified BILL Richmond. No new changes made. She recommended I administer the Q4 prn hydralazine again. Will continue to monitor.
--- NOTE | 2021-08-30 02:29 | NUR ---
Prn hydralazine administered. Will re-assess BP. Continuing to monitor.
--- NOTE | 2021-08-30 06:26 | NUR ---
No adverse events over night. Pt denies pain this morning. Alert, but drowsy. Oriented when awoken, but falls back asleep easily. BP has decreased to 147/80. HR is in the 60's and pt is satting 97% on 2L [place]. Morning medications administered per orders and tolerated well. Ativan was only given x1 overnight. Hydralazine administered x2 overnight for elevated systolic BP. Pt remains drowsy this morning, but is alert and oriented to speech and follows commands. Pt reports no questions. Will continue to monitor, no concerns at this time.
[2021-08-30 06:32] LABS: MEAN CELL VOLUME 75 fl (80.0-100.0); MEAN CORPUSCULAR HGB CONC 32 g/dl (33.0-37.0); PLATELET COUNT 103 K/mm3 (130-400); REDCELL DISTRIBUTION WIDTH-CV 20.7 % (11.5-14.5)
[2021-08-30 06:43] LABS: HEMATOCRIT 28.3 % (42.0-52.0); MEAN CORPUSCULAR HEMOGLOBIN 24 pg (27-31)
[2021-08-30 06:44] LABS: ALBUMIN 2.7 gm/dL (3.5-5.0); BILIRUBIN,TOTAL 1.8 mg/dL (0.2-1.2); CALCIUM 7.4 mg/dL (8.4-10.2); CREATININE, serum 0.74 mg/dL (0.72-1.25); POTASSIUM 3.8 mmol/L (3.5-4.5); TOTAL PROTEIN 6.2 gm/dL (6.2-8.1)
[2021-08-30 08:00] LABS: BAND 1 % (0-10); LYMPHOCYTE 13 % (20.0-51.0); NEUTROPHILS 82 % (42.0-75.2); POLYCHROMASIA 1+
[2021-08-30 08:01] LABS: ANISOCYTOSIS 2+; PLATELET ESTIMATE DECREASED (NORMAL); TARGET CELLS 1+
--- NOTE | 2021-08-30 10:03 | NUR ---
PT RESTING IN BED. MORNING MEDICATIONS GIVEN. SHIFT ASSESSMENT COMPLETED. PT VERY DROWSY, THIS RN ABLE TO WAKE PT UP AND ENCOURAGE HIM TO EAT BREAKFAST. CIWA SCORING AT A 2 THIS AM. DENIES ANY NEEDS. AT BEDSIDE. WILL CONTINUE TO MONITOR.
--- NOTE | 2021-08-30 18:13 | NUR ---
PT APPEARS MUCH MORE AWAKE THIS EVENING. IS REQUESTING TO USE THE URINAL AND IS SITTING UP IN BED EATING DINNER. CIWA SCORING A 2 THROUGHOUT THE DAY, REQUIRED NO ATIVAN. WILL PASS ALONG REPORT TO ONCOMING RN.
[2021-08-31] VITALS (12 sets, daily range): BP systolic 148–165; BP diastolic 69–93; PULSE 59–104; TEMP 97.5–98.5
--- NOTE | 2021-08-31 06:15 | NUR ---
ASSESSMENT COMPLETE FOR THIS SHIFT. PT RESTING IN BED FINISHING UP HIS DINNER. PT DENIED PAIN, PALPITATIONS, N,V,D OR DIZZINESS. PT DID SEEM TO HAVE SOME LABORED BREATHING, ALTHOUGH PT WAS SUCCESSFULLY TAKEN OF O2. ABSTINENCE SCORING STABLE THIS SHIFT AT 2. NEURO CHECKS STABLE WELL. PT MUCH MORE COMMUNICATIVE WITH ME THEN DAYSHIFT REPORTED HIM TO BE. PT TALKED ABOUT WHERE HE WAS FROM IN [place], LIVING FOR A COUPLE YEARS IN [place] AND HATING IT. HIS FAMILY AND BEING ESTRANGED FROM HIS CHILDREN AND GRANDCHILD, ETC. PT ALSO WOULD LIKE HIS DIET ADVANCED (PT WANTED A BURGER AND SOME CAKE). PT EXPRESSED NO OTHER NEEDS AT THIS TIME. CALL LIGHT WITHIN REACH.
--- NOTE | 2021-08-31 09:45 | NUR ---
PT SITTING UP IN BED EATING BREAKFAST. MORNING MEDICATIONS GIVEN. SHIFT ASSESSMENT COMPLETED. PT MUCH MORE AWAKE THIS MORNING. ANSWERS QUESTIONS APPROPRIATELY AND FOLLOWS VERBAL COMMANDS. PT ABLE TO SWALLOW MORNING MEDICATIONS EASILY, WITH A SIP OF WATER. DENIES ANY PAIN AT THIS TIME]. EXTERNAL GARCIAS IN PLACE. CURRENTLY ON ROOM AIR. WILL CONTINUE TO MONITOR.
--- NOTE | 2021-08-31 10:49 | NUR ---
SW contacted Mariah at [facility] at this time they do not currently have a bed for this patient. Referral made to Angelica in [facility]. Patient and are opposed to this plan and state "the only place i will go is [facility] in [place]". Contacted Mariah again. They are pending two transfers to higher level of care facilities but are awaiting accepting physicians. I informed Mariah that we are willing to hold the patient until they have a bed. She states that they might be able to take the patient later today or over the weekend pending their transfers. Hospitalist notified of updated plan. Will await phone call from Mariah.
--- NOTE | 2021-08-31 17:46 | NUR ---
PT IN A VERY GOOD MOOD THIS EVENING. IS REQUESTING TO GET UP AND WALK AROUND AND BRUSH HIS TEETH. DENIES ANY PAIN OR NEEDS. CONTINUING TO MONITOR.
[2021-09-01] VITALS (12 sets, daily range): BP systolic 124–158; BP diastolic 67–95; PULSE 82–109; TEMP 97.2–98.2
--- NOTE | 2021-09-01 06:30 | NUR ---
ASSESSMENT COMPLETE FOR THIS SHIFT. PT RESTING IN BED WATCHING THE NEWS. PT DENIED PAIN, PALPITATIONS, N,V,D OR DIZZINESS. PT DID COMPLAIN OF SOB, THAT HE SAID WAS NORMAL FOR HIM. PT'S ABSTINENCE AND NEURO SCORING STABLE. PT EXPRESSED NO OTHER NEEDS AT THIS TIME. CALL LIGHT WITHIN REACH.
[2021-09-01 07:35] LABS: BASO % 0.1 % (0.0-2.0); GRAN # 13.5 K/mm3 (1.4-6.5); LYMPH # 0.7 K/mm3 (1.2-3.4); LYMPH % 4.6 % (20.0-51.0); MEAN CELL VOLUME 75 fl (80.0-100.0); MEAN CORPUSCULAR HGB CONC 31 g/dl (33.0-37.0); MEAN PLATELET VOLUME 9.8 fl (7.4-10.4); MONO # 1.3 K/mm3 (0.1-0.6); MONO % 8.1 % (1.7-9.3); PLATELET COUNT 138 K/mm3 (130-400); RED BLOOD COUNT 4.22 M/mm3 (4.20-5.60); REDCELL DISTRIBUTION WIDTH-CV 21.7 % (11.5-14.5)
[2021-09-01 07:42] LABS: HEMATOCRIT 31.7 % (42.0-52.0); HEMOGLOBIN 9.9 g/dl (13.5-18.0); MEAN CORPUSCULAR HEMOGLOBIN 23 pg (27-31)
[2021-09-01 07:52] LABS: CALCIUM 7.9 mg/dL (8.4-10.2); CREATININE, serum 0.8 mg/dL (0.72-1.25); MAGNESIUM 2.2 mg/dL (1.6-2.6); POTASSIUM 3.6 mmol/L (3.5-4.5)
--- NOTE | 2021-09-01 09:06 | NUR ---
MORNING MEDICATIONS GIVEN. REPORT GIVEN TO ORIN BURGESS.
[2021-09-02 00:05] VITALS: BP 126/79; PULSE 88; TEMP 97.6
[2021-09-02 04:05] VITALS: BP 128/78; PULSE 106; TEMP 97.4
--- NOTE | 2021-09-02 06:30 | NUR ---
ASSESSMENT COMPLETE FOR THIS SHIFT. PT RESTING IN HIS RECLINER AT THE BEGINNING OF THE SHIFT WHEN I CAME IN FOR BEDSIDE REPORT AND IN HIS BED, WHEN I CAME IN FOR HIS ASSESSMENT. ACCORDING TO PT, HE HAD JUST SLID OUT OF HIS RECLINER. PT REPORTS NO INJURIES OR PAIN. VSS. EVENT REPORT COMPLETED. PT DENIED PAIN, PALPITATIONS, N,V,D OR DIZZINESS. PT CONTINUES TO HAVE SOME SOB WITH AMBULATION. PT'S ABSTINENCE AND NEURO CONTINUE TO BE STABLE. PT EXPRESSED NO OTHER NEEDS AT THIS TIME. CALL LIGHT WITHIN REACH.
[2021-09-02 08:08] VITALS: BP 123/75; PULSE 99; TEMP 97.9
[2021-09-02 11:44] VITALS: BP 129/79; PULSE 86; TEMP 97.7
--- NOTE | 2021-09-02 11:57 | NUR ---
MONI called [facility] facility to check the bed status for patient transport. Facility staff stated that they did not have availability at this time and to check back on 09/03/2021. MONI will continue to follow.
[2021-09-02 15:42] VITALS: BP 136/73; PULSE 89; TEMP 98
[2021-09-02 20:17] VITALS: BP 119/69; PULSE 90; TEMP 97.8
--- NOTE | 2021-09-02 20:30 | NUR ---
Initial shift assessment done- denies pain at this time- sitting at edge of bed- has prosthetic leg to R/BKA, States he has been getting up on his own all day- informed that we need to call for assistance to bathroom, bed alarm on. Hs snack given tonight- requesting jello,, Alert/oriented, somewhat of a flat affect, pleasant/does converse, PICC to ADÁN.
[2021-09-03 00:41] VITALS: BP 124/59; PULSE 92; TEMP 98.4
[2021-09-03 04:24] VITALS: BP 136/67; PULSE 78; TEMP 98.2
[2021-09-03] MEDS ORDERED: TRENTAL 400MG400 MG PO (05:20)
--- NOTE | 2021-09-03 05:29 | NUR ---
Very quiet night- slept all night,VSS.
[2021-09-03 07:24] VITALS: BP 136/75; PULSE 77; TEMP 97.5
--- NOTE | 2021-09-03 08:00 | NUR ---
Patient sitting on edge of bed upon entering the room. Bed alarm was off at this time; this RN turned the bed alarm on and explained the purpose of it to the patient. Patient verbalized understanding. Patient has no concerns at this time, just would like to go home. Patient A&Ox4, and a 1x assist w/ walker. Patient has prosthesis in place for right BKA.
[2021-09-03 08:12] LABS: BASO % 0.1 % (0.0-2.0); EOS # 0.1 K/mm3 (0.0-0.7); EOS % 0.4 % (0.0-4.0); GRAN # 11.8 K/mm3 (1.4-6.5); GRAN % 78.1 % (42.2-75.2); LYMPH # 1.7 K/mm3 (1.2-3.4); LYMPH % 11.2 % (20.0-51.0); MEAN CELL VOLUME 76 fl (80.0-100.0); MEAN CORPUSCULAR HGB CONC 31 g/dl (33.0-37.0); MEAN PLATELET VOLUME 10.1 fl (7.4-10.4); MONO # 1.4 K/mm3 (0.1-0.6); MONO % 9.2 % (1.7-9.3); PLATELET COUNT 127 K/mm3 (130-400); RED BLOOD COUNT 4.05 M/mm3 (4.20-5.60); REDCELL DISTRIBUTION WIDTH-CV 22.4 % (11.5-14.5)
[2021-09-03 08:13] LABS: HEMATOCRIT 30.9 % (42.0-52.0); HEMOGLOBIN 9.5 g/dl (13.5-18.0); MEAN CORPUSCULAR HEMOGLOBIN 23 pg (27-31)
[2021-09-03 08:23] LABS: CALCIUM 7.6 mg/dL (8.4-10.2); CREATININE, serum 0.79 mg/dL (0.72-1.25); POTASSIUM 3.7 mmol/L (3.5-4.5)
[2021-09-03] MEDS ORDERED: PREDNISONE20 MG PO ×2 (09:26)
[2021-09-03] MEDS ORDERED: CARAFATE 1GM1 G PO (09:26)
[2021-09-03] MEDS ORDERED: IRON TABLETS325 MG PO (09:29)
[2021-09-03] MEDS ORDERED: PREDNISONE10 MG PO (10:21)
--- NOTE | 2021-09-03 10:28 | NUR ---
Notified by Mariah at [facility] SW that they are able to accept this patient today for admit and Malaika HINES accepting. Doc to doc number provided to hospitalist. Rn notified and provided report number. Message left for Xochilt to notify of acceptance and to arrange a order picker time.
[2021-09-03 11:36] VITALS: BP 131/70; PULSE 95; TEMP 97.2
--- NOTE | 2021-09-03 13:25 | NUR ---
MONI met with patient and patient's Xochilt at bedside. Patient sleeping during interaction. Peg provided update to dc plan to [facility] today. She is agreeable to this plan. Xochilt presented with the [facility].IM form. Education provided and she signed on the patients behalf. Signed original placed in the patient's chart and copy provided back to his .
--- NOTE | 2021-09-03 13:37 | NUR ---
Patient discharged to [facility]. Report given to nurse taking over care of the patient. Patient transferred there via private vehicle. PICC line removed by Anabella, verbal order given by Dr. García to do so (electronic order placed by this RN). Patient had no concerns at the time of discharge.
== END 2021-09-03 13:15 | disposition swing bed (61) | DRG 432 ==
LOC: MEDICAL 18:13
PROVIDERS: Internal Medicine; Internal Medicine Gastroenterology; Nurse Practitioner Family; Physician Assistant; Student in an Organized Health Care Education/Training Program; ADMIT Internal Medicine
PROC: 02HV33Z Insertion of Infusion Device into Superior Vena Cava, Percutaneous Approach (ICD-10-PCS; 2021-08-27)
PROC: 0DB58ZX Excision of Esophagus, Via Natural or Artificial Opening Endoscopic, Diagnostic (ICD-10-PCS; 2021-08-28)
PROC: 06L38CZ Occlusion of Esophageal Vein with Extraluminal Device, Via Natural or Artificial Opening Endoscopic (ICD-10-PCS; principal; 2021-08-28 14:30)
PROC: 30233N1 Transfusion of Nonautologous Red Blood Cells into Peripheral Vein, Percutaneous Approach (ICD-10-PCS; 2021-08-29)
DX: K70.30 Alcoholic cirrhosis of liver without ascites (principal); J96.01 Acute respiratory failure with hypoxia; I85.11 Secondary esophageal varices with bleeding; J44.1 Chronic obstructive pulmonary disease with (acute) exacerbation; R04.2 Hemoptysis; R65.10 Systemic inflammatory response syndrome (SIRS) of non-infectious origin without acute organ dysfunction; E87.1 Hypo-osmolality and hyponatremia; D62 Acute posthemorrhagic anemia; I10 Essential (primary) hypertension; J10.1 Influenza due to other identified influenza virus with other respiratory manifestations; Z66 Do not resuscitate; Z20.822 Contact with and (suspected) exposure to COVID-19; D69.6 Thrombocytopenia, unspecified; I45.81 Long QT syndrome; I73.9 Peripheral vascular disease, unspecified; K29.70 Gastritis, unspecified, without bleeding; I08.1 Rheumatic disorders of both mitral and tricuspid valves; D64.9 Anemia, unspecified; E87.8 Other disorders of electrolyte and fluid balance, not elsewhere classified; F10.129 Alcohol abuse with intoxication, unspecified; R16.0 Hepatomegaly, not elsewhere classified; F32.A Depression, unspecified; F17.210 Nicotine dependence, cigarettes, uncomplicated; R53.81 Other malaise; Z89.511 Acquired absence of right leg below knee; Z88.2 Allergy status to sulfonamides
CPT/HCPCS: 99223-AI; 99232-AI; 99233-AI; 99239; C1751; C9113; J0360; J0456; J0696; J2060; J2354; J2405; J2704; J2920; J7030; J7040; J7050; J7512; P9016

== ENCOUNTER → 2021-10-10 | Outpatient (CLI) | payer MEDICARE, MEDICAID ==
[~2021-10-10] MED LIST changes: +CARAFATE 1GM1 G PO; +IRON TABLETS325 MG PO; +PREDNISONE10 MG PO; +PREDNISONE20 MG PO; +SYNTHROID0.075 MG/T PO; +TRENTAL 400MG400 MG PO
== END ==
LOC: COL.RAD 07:58
DX: K74.60 Unspecified cirrhosis of liver (principal)
CPT/HCPCS: A9575

== ENCOUNTER 2021-10-26 06:03 | Day surgery (SDC) | payer MEDICARE, MEDICAID ==
[~2021-10-26] VITALS: Ht 177.8 cm; Wt 102.7 kg
[2021-10-26 06:30] VITALS: BP 124/81; PULSE 104; TEMP 98.1
[2021-10-26 07:20] VITALS: BP 138/94; PULSE 91; TEMP 98
[2021-10-26 07:30] VITALS: BP 152/99; PULSE 88
[2021-10-26 07:42] VITALS: BP 134/84; PULSE 87
--- NOTE | 2021-10-26 08:10 | NUR ---
0720 Pt returns from endo procedure via cart and RN assist to GI [facility] 2. Pt ambulates from cart to recliner with RN assist. Monitors on and alarms set. Call light within reach. Report received from ORIN Villalobos. Pt alert and oriented. Pt requests muffin and water. Pt denies any pain or nausea. Pt's present in room. 0730 Pt taking food and drink well. No complications noted. 0740 Discharge instructions given to pt and pt's . All questions answered to their satisfaction. Handed to pt are a thank you card and discharge information. Waiting on Dr. Sam to visit pt. 0810 Pt transferred out of the hospital via wheelchair and ORIN Abreu assist, to private vehicle driven by pt's .
== END 2021-10-26 08:10 | disposition home or self-care (01) ==
LOC: SDCO 06:03
DX: I85.10 Secondary esophageal varices without bleeding (principal); K70.30 Alcoholic cirrhosis of liver without ascites; K22.70 Barrett's esophagus without dysplasia; Z79.899 Other long term (current) drug therapy; F10.20 Alcohol dependence, uncomplicated
CPT/HCPCS: J7030

== ENCOUNTER 2021-12-28 06:25 | Day surgery (SDC) | payer MEDICARE, MEDICAID ==
[2021-12-28] VITALS (7 sets, daily range): BP systolic 129–142; BP diastolic 72–90; PULSE 63–94; TEMP 96.7–97.8
[~2021-12-28] VITALS: Ht 177.8 cm; Wt 99.0 kg
[~2021-12-28 06:25] MED LIST changes: +RT SPIRIVA18 MCG IH
[2021-12-28] MEDS ORDERED: GLUCOPHAGE XR500 M1 PO (07:06)
== END 2021-12-28 08:30 | disposition home or self-care (01) ==
LOC: SDCO 06:25
DX: K70.30 Alcoholic cirrhosis of liver without ascites (principal); I85.10 Secondary esophageal varices without bleeding; K22.70 Barrett's esophagus without dysplasia; F17.210 Nicotine dependence, cigarettes, uncomplicated; Z79.899 Other long term (current) drug therapy
CPT/HCPCS: J2704; J7030

== ENCOUNTER 2022-06-14 06:54 | Day surgery (SDC) | payer MEDICARE, MEDICAID ==
[~2022-06-14] VITALS: Ht 177.8 cm; Wt 98.8 kg
[~2022-06-14 06:54] MED LIST changes: +FLOMAX 0.40.4 MG/CAP PO; +GLUCOPHAGE XR500 M1 PO; -MEN'S ONE DAIL1 EACH PO; +QUALITY CHOICE1 T22 PO; +VANCOCIN H125 MG/CAP PO
[2022-06-14 07:23] VITALS: BP 138/95; PULSE 94; TEMP 98.2
[2022-06-14 08:35] VITALS: BP 156/91; PULSE 87; TEMP 97.6
[2022-06-14 08:50] VITALS: BP 155/92; PULSE 75
[2022-06-14 09:05] VITALS: BP 150/90; PULSE 70
[2022-06-14 09:20] VITALS: BP 151/89; PULSE 72
--- NOTE | 2022-06-14 15:51 | NUR ---
PT BACK FROM ENDO SUITE TO [facility] S/P EGD WITH BANDING - A&O, NAD. WALKED TO CHAIR WITH STEADY GAIT WITH PROSTHESIS AND 2 PERSON ASSIST. PLACED ON MONITOR, VSS ON RA. BP ELEVATED, BUT AT BASELINE FOR PT. IN ROOM. RECEIVED REPORT AND ASSUMED CARE OF PT FROM ENDO RN. C/O MODERATE TRANSIENT EPIGASTRIC PAIN AND NAUSEA, RESOLVING TO TOLERABLE MILD LEVEL AFTER SITTING DOWN. PROVIDED WATER AND CRACKERS AFTER S/S TOLERABLE WITH INSTRUCTIONS TO TAKE TOLERATED - TOLERATED. VORB FROM DR LINARES FOR 4 MG IVP ZOFRAN - GIVEN AT 0850, RESULTING IN FURTHER REDUCTION OF SYMPTOMS. PT TOLERATING PO NOW. DR VERA IN ROOM TO SPEAK WITH PT/FAMILY IV D/C'D, DISCHARGE INSTRUCTIONS REVIEWED AND PROVIDED. PT CHANGED TO STREET [employer] AND TAKEN TO EXIT VIA W/C WITH ALL BELONGINGS AND PAPERWORK - DRIVING HIM HOME
== END 2022-06-14 09:30 | disposition home or self-care (01) ==
LOC: SDCO 06:54
DX: I85.10 Secondary esophageal varices without bleeding (principal); K70.30 Alcoholic cirrhosis of liver without ascites; K29.30 Chronic superficial gastritis without bleeding; K76.6 Portal hypertension; F17.210 Nicotine dependence, cigarettes, uncomplicated
CPT/HCPCS: J2405; J2704; J7030

== ENCOUNTER 2022-07-12 07:25 | Day surgery (SDC) | payer MEDICARE, MEDICAID ==
[~2022-07-12] VITALS: Ht 177.8 cm; Wt 100.0 kg
[2022-07-12 07:58] VITALS: BP 139/90; PULSE 99; TEMP 97.5
[2022-07-12 09:10] VITALS: BP 130/85; PULSE 86; TEMP 97.5
[2022-07-12 09:25] VITALS: BP 118/91; PULSE 80
[2022-07-12 09:35] VITALS: BP 141/86; PULSE 82
--- NOTE | 2022-07-12 09:40 | NUR ---
0910 RETURNS TO ROOM 5 PER CART. AWAKE, ALERT. RESP CLEAR, UNLABORED. AMBULATES TO RECLINER WITH STANDBY ASSIST. DENIES NAUSEA, ABD PAIN OR DYSPHAGIA. VITAL SIGNS OBTAINED. CALL LIGHT AT SIDE. IN ROOM 0920 DISCHARGE INSTRUCTIONS REVIEWED. PATIENT VERBALIZES UNDERSTANDING. COPY PROVIDED IN DISCHARGE FOLDER. 0925 TOLERATES PO APPLE JUICE WITHOUT NAUSEA. SWALLOWS WITHOUT DIFFICULTY 0930 DR. VERA HERE TO VISIT WITH PATIENT. 0935 DRESSES SELF
== END 2022-07-12 09:40 | disposition home or self-care (01) ==
LOC: SDCO 07:25
DX: I85.01 Esophageal varices with bleeding (principal); K70.30 Alcoholic cirrhosis of liver without ascites; I10 Essential (primary) hypertension; F17.210 Nicotine dependence, cigarettes, uncomplicated
CPT/HCPCS: J2704; J7120

== ENCOUNTER 2023-12-21 22:30 | Emergency (ER) | payer MEDICARE, MEDICAID ==
[~2023-12-21] VITALS: Ht 177.8 cm; Wt 109.1 kg
[2023-12-21 22:31] VITALS: TEMP 98.1
[2023-12-21] MEDS ORDERED: NS 1,000 ML IV ONE (22:45)
[2023-12-21 22:59] LABS: BASO # 0.1 K/mm3 (0.0-0.2); BASO % 1.2 % (0.0-2.0); EOS % 0.5 % (0.0-4.0); GRAN # 3.2 K/mm3 (1.4-6.5); GRAN % 53.1 % (42.2-75.2); HEMATOCRIT 40.8 % (42.0-52.0); HEMOGLOBIN 14.2 g/dl (13.5-18.0); LYMPH % 33.7 % (20.0-51.0); MEAN CELL VOLUME 95 fl (80.0-100.0); MEAN CORPUSCULAR HEMOGLOBIN 33 pg (27-31); MEAN CORPUSCULAR HGB CONC 35 g/dl (33.0-37.0); MEAN PLATELET VOLUME 10.6 fl (7.4-10.4); MONO # 0.7 K/mm3 (0.1-0.6); MONO % 11.2 % (1.7-9.3); PLATELET COUNT 59 K/mm3 (130-400); RED BLOOD COUNT 4.29 M/mm3 (4.20-5.60); REDCELL DISTRIBUTION WIDTH-CV 14.2 % (11.5-14.5)
[2023-12-21] MEDS ORDERED: Ondansetron 4 MG/2 ML VIAL IV ONE (23:00)
[2023-12-21 23:08] LABS: INR 1.6 (0.8-3.0); PROTHROMBIN TIME 17.6 SECONDS (9.7-12.8)
[2023-12-21 23:16] LABS: ALANINE AMINOTRANSFERASE 54 U/L (0-55); ALBUMIN 3.2 g/dL (3.5-5.0); ALKALINE PHOSPHATASE 102 U/L (40-150); ANION GAP 17 mmol/L (7-16); AST,SGOT 169 U/L (5-34); BILIRUBIN,TOTAL 5.1 mg/dL (0.2-1.2); CALCIUM 8.2 mg/dL (8.4-10.2); CHLORIDE 92 mEq/L (98-107); CREATININE, serum 0.76 mg/dL (0.72-1.25); GLUCOSE 121 mg/dL (70-99); LIPASE 84 U/L (8-78); POTASSIUM 3.7 mEq/L (3.5-4.5); SODIUM 129 mEq/L (136-145); TOTAL PROTEIN 7.2 g/dl (6.2-8.1)
[2023-12-21 23:25] LABS: ALCOHOL(ethanol),MEDICAL 361 mg/dL (0-10); BLOOD UREA NITROGEN < 5 mg/dL (8-26)
[2023-12-21 23:26] LABS: TROPONIN-I 0.034 ng/mL (0.00-0.033)
[2023-12-22] MEDS ORDERED: NS 1,000 ML IV ONE (01:00)
[2023-12-22] MEDS ORDERED: cefTRIAXone 1 G in Water For Injection,Sterile 10 ML IV ONE (01:15)
[2023-12-22] MEDS ORDERED: Pantoprazole 80 MG in NS 100 ML IV ONE (01:15)
[2023-12-22] MEDS ORDERED: Octreotide 100 MCG/ML 1 ML VIAL IV ONE (01:15)
[2023-12-22] MEDS ORDERED: droPERidol 2.5 MG/ML 2 ML VIAL IV ONE (01:30)
[2023-12-22 02:15] VITALS: BP 115/74; PULSE 101
== END 2023-12-22 02:15 | disposition short-term general hospital (02) ==
LOC: COL.ER 22:30
PROVIDERS: Emergency Medicine
DX: I85.00 Esophageal varices without bleeding (principal); D69.6 Thrombocytopenia, unspecified; F10.129 Alcohol abuse with intoxication, unspecified; Y90.8 Blood alcohol level of 240 mg/100 ml or more
CPT/HCPCS: J0696; J1790; J2354-JA; J2405; J2470; J7030